=== PATIENT | female | born 1975 | race Caucasian/White ===

== ENCOUNTER → 2020-10-13 16:16 | Outpatient (CLI) | payer OTHER, SELFPAY ==
--- NOTE | ~2020-10-13 | MM_ITS ---
EXAMINATION: MM scrn deidre implant BI w bertha HISTORY: Screening mammogram TECHNIQUE: Craniocaudal and mediolateral oblique 3-D tomosynthesis images with implant displacement a nd synthetic 2-D images were generated. Craniocaudal and mediolateral oblique views of the breasts wi thout implant displacement were obtained using full field digital mammography. CAD analysis was submi tted and interpreted. COMPARISON: Comparison to multiple prior studies sequentially, with oldest reviewed study dated 01/12. BREAST PARENCHYMAL COMPOSITION: There are scattered areas of fibroglandular density. FINDINGS: There are bilateral subpectoral silicone implants. There is no evidence of suspicious mass, calcification, or architectural distortion to suggest malignancy in either breast. There has been no suspicious interval change. IMPRESSION: 1. No mammographic evidence of malignancy. 2. Recommend routine screening mammography in one year. BI-RADS Category 1: Negative Reviewed, dictated and finalized at location A. [employer]
== END ==
PROVIDERS: PCP Family Medicine; Visit Provider Obstetrics & Gynecology Gynecology
DX: Z12.31 Encounter for screening mammogram for malignant neoplasm of breast (principal)
CPT/HCPCS: 77063; 77067

== ENCOUNTER 2021-07-10 07:04 | Emergency (ER) | payer OTHER, SELFPAY ==
[2021-07-10] VITALS (16 sets, daily range): BP systolic 102–168; BP diastolic 54–102; PULSE 65–86; RESP 12–20; TEMP 36.4; O2SAT 95–100
--- NOTE | ~2021-07-10 | CT_ITS ---
EXAMINATION: CT brain wo con DATE: 07/10/2021 08:10 INDICATION: Frontal headache. TECHNIQUE: Computed tomography (CT) of the head was performed without intravenous contrast. The mA wa s adjusted according to patient size. Iterative reconstruction technique was employed. The dose-lengt h product was 605.33 mGy-cm. COMPARISON: Brain MRI 03/14/2019 FINDINGS: There is no intracranial hemorrhage, acute infarction, or abnormal intracranial mass lesion . The ventricles are normal in size. The paranasal sinuses are clear. The mastoid air cells are jessica l. The orbits are normal. IMPRESSION: 1. Normal brain. Reviewed, dictated and finalized at location A. IMPRESSION: 1. Normal brain.
--- NOTE | ~2021-07-10 | XR_ITS ---
EXAMINATION: XR chest 2V DATE: 07/10/2021 07:30 INDICATION: Chest pain radiating to the left shoulder. TECHNIQUE: Frontal and lateral views of the chest were obtained. COMPARISON: None. FINDINGS: The chest demonstrates clear lungs without pneumonia, pleural effusion, or pneumothorax. Th e heart size is normal. Surgical clips in the right upper quadrant are likely from cholecystectomy. B reast implants are noted. IMPRESSION: 1. No acute cardiopulmonary disease. Reviewed, dictated and finalized at location A.
--- NOTE | 2021-07-10 07:05 | ECG_ITS ---
Measurements Intervals Success Rate: 85 P: 56 VT: 142 QRS: 13 QRSD: 88 T: 53 QT: 381 QTc: 454 Interpretive Statements SINUS RHYTHM DELAYED PRECORDIAL R/S TRANSITION BORDERLINE T WAVE ABNORMALITY- INFERIOR LEADS BASELINE ARTIFACT- I, II, III, AVR, AVL, AVF BORDERLINE ECG Electronically Signed On 07-10-2021 7:43:19 CDT by Javier Weber D.O.
[2021-07-10 07:23] LABS: Basophils Percent Auto 0.5 % (0.2-1.2); Eosinophils Absolute Auto 0.1 K/mm3 (0-0.3); Eosinophils Percent Auto 1.3 % (0-4.4); Hemoglobin 15.1 g/dL (12.0-15.0); Immature Granulocyte Absolute 0.01 K/mm3 (0.00-0.031); Immature Granulocyte Percent A 0.2 % (0-0.5); Lymphocytes Absolute Auto 1.89 K/mm3 (0.9-3.2); Lymphocytes Percent Auto 30.2 % (18.3-44.2); Mean Corpuscular HGB Conc 33.6 g/dl (32-36); Mean Corpuscular Hemoglobin 32.3 pg (26-34); Mean Corpuscular Volume 96.4 fl (80-100); Mean Platelet Volume 10.3 fl (7.4-10.4); Monocytes Absolute Auto 0.4 K/mm3 (0.1-0.6); Monocytes Percent Auto 5.6 % (2.6-8.5); Neutrophils Absolute Auto 3.9 K/mm3 (1.3-6.7); Neutrophils Percent Auto 62.2 % (45.5-73.1); Platelet Count Result 301 k/mm3 (150-375); Red Blood Count 4.67 M/mm3 (4.2-5.4); Red Cell Distribution Width 11.9 % (11.5-14.5); White Blood Count 6.3 K/mm3 (4.5-10.0)
[2021-07-10 07:32] LABS: INR 0.9; Prothrombin Time 12.2 Seconds (11.1-14.7)
[2021-07-10 07:33] LABS: Partial Thromboplastin Time 22.2 SECONDS (22.3-36.8)
[2021-07-10 07:35] LABS: Anion Gap 9 mmol/L (8-16); Blood Urea Nitrogen 16 mg/dL (7-17); Calcium 9.7 mg/dL (8.4-10.2); Carbon Dioxide 26 mmol/L (22-30); Chloride 101 mmol/L (98-107); Estimated CRCL calculation 92 ml/min; Estimated Glomerular Filt Rate > 60; Glucose 110 mg/dL (65-110); Potassium 4.3 mmol/L (3.4-5.0); Sodium 136 mmol/L (137-145)
[2021-07-10 07:43] LABS: Alveolar/Arterial O2 Gradient 26.7 mmHg; Base Excess ABG -0.4 mEq/l (+/-2.0); Fractional Inspired Oxygen 21 %; HCO3 ABG 23.1 mEq/l (22.0-26.0); Oxygen Content ABG 18.8 %vol (16.0-22.0); Oxygen Saturation ABG 96.5 % (95.0-100.0); Oxyhemoglobin 95.3 % THb (90.0-100.0); PCO2 ABG 34.5 mmHg (35.0-45.0); PO2 ABG 81.7 mmHg (80.0-100.0); PO2 FiO2 Ratio Arterial Blood 3.89 %; pH ABG 7.443 (7.350-7.450)
[2021-07-10 07:46] LABS: Troponin I < 0.012 ng/mL (0.000-0.034)
--- NOTE | 2021-07-10 07:54 | ED.CHESTPAIN ---
HPI - Chest Pain General Chief Complaint: Chest Pain Stated Complaint: LEFT sided CP into shoulder, H/A Time Seen by Provider: 07/10/21 07:21 Source: patient Mode of arrival: ambulatory Limitations: no limitations History of Present Illness HPI narrative: Patient is 46 years old white female presents with left chest pain radiating to left side of neck and left upper back woke up at 3 AM. Worse with deep breathing and certain movement. Patient denies similar symptoms. History of scleroderma and hypertension. Patient also complaining of frontal headache over the last 3 days, similar to her previous history of migraine, received Excedrin 2 days ago with some improvement. Patient reports a lot of stress lately mainly at work. Related Data Home Medications Medication Instructions Recorded Confirmed ergocalciferol (vitamin D2) 07/10/21 nifedipine PO 07/10/21 Allergies Allergy/AdvReac Type Severity Reaction Status Date / Time levofloxacin Allergy Unknown Unknown Verified 08/18/20 07:57 Penicillins Allergy Unknown Unknown Verified 08/18/20 07:57 Sulfa (Sulfonamide Allergy Unknown Unknown Verified 08/18/20 07:57 Antibiotics) Review of Systems Review of Systems: CONSTITUTIONAL: Denies fever, chills, or sweats. EYES: Denies visual changes, redness, or discharge. ENT: Denies rhinorrhea, congestion, sore throat, or otalgia. CARDIOVASCULAR: Denies chest pain, palpitations, or edema. RESPIRATORY: Denies cough or dyspnea. GASTROINTESTINAL: Denies abdominal pain, nausea, vomiting, or diarrhea. GENITOURINARY: Denies dysuria or hematuria. SKIN: Denies rash or itching. MUSCULOSKELETAL: Denies back pain, joint pain, or myalgia. NEUROLOGIC: Denies headache, numbness, or weakness. PSYCHIATRIC: Denies anxiety or depression. PMFSH Past Medical History Medical History BMI 31.0-31.9,adult Family History Family History Grandparent Family history of malignant neoplasm of breast Other Hypertension Social History Social History Smoking status: Never smoker Alcohol intake: current Exam Narrative: General appearance: Well-developed, well-nourished Skin: Normal color Head: Normocephalic, nontraumatic Eyes: Clear conjunctiva ENT: Oropharynx normal, ears normal, nose normal Neck: Supple, nontender Chest and respiratory: Airway patent, no respiratory distress, no accessory muscle use, diffuse tenderness to left upper chest, left upper back with light palpation, no bruises, no rash, no swelling Heart: Regular rate/rhythm Abdomen: Soft, nontender, no organomegaly, quiet bowel sounds Vascular: Normal peripheral pulses, normal capillary refill. Musculoskeletal: Normal range of motion, nontender back Neurologic: Alert and oriented ?3, [employer] is normal as tested, no gross motor deficit Course Course Emergency Course: Stable, improving Vital Signs Vital signs: Vital Signs Temperature 36.4 C 07/10/21 07:10 Pulse Rate 86 07/10/21 07:10 Respiratory Rate 14 07/10/21 07:10 Blood Pressure 168/90 H 07/10/21 07:10 Pulse Oximetry 98 07/10/21 07:10 Temperature 36.4 C 07/10/21 07:10 Pulse Rate 72 07/10/21 09:02 Respiratory Rate 12 07/10/21 09:02 Blood Pressure 128/57 L 07/10/21 09:01 Pulse Oximetry 98 07/10/21 09:02 MDM - Chest Pain MDM Narrative Medical decision making narrative: Patient presents with what seems like musculoskeletal pain, also headache and stress. Labs, CT head, chest x-ray ordered. Differential Diagnosis Differential diagnosis: Likely atypical angelica
[2021-07-10 08:17] LABS: Alanine Aminotransferase 16 U/L (4-35); Albumin Level 4.3 g/dL (3.5-5.1); Alkaline Phosphatase 40 U/L (38-126); Aspartate Amino Transferase 25 U/L (14-36); Bilirubin,Total 0.6 mg/dL (0.2-1.3)
[2021-07-10] MEDS: KETOROLAC 30 MG/ML VIAL (*BKC) IV PUSH (08:24)
[2021-07-10] MEDS: LORazepam INJ (*CRX) 2 MG/ML VIAL 1 MG IV PUSH (08:24)
[2021-07-10 08:28] LABS: Device ROOM AIR; Modified Allen's Test Pass; Site Drawn LEFT RADIAL
[2021-07-10 09:46] LABS: D Dimer < 0.22 ug/mL (<0.48)
== END 2021-07-10 10:27 | disposition home or self-care (01) ==
PROVIDERS: Emergency Medicine; Emergency Provider Emergency Medicine; PCP Family Medicine
DX: R07.89 Other chest pain (principal); G43.009 Migraine without aura, not intractable, without status migrainosus; F43.22 Adjustment disorder with anxiety; R94.31 Abnormal electrocardiogram [ECG] [EKG]
CPT/HCPCS: 36415; 36600; 70450; 71046; 80048; 80076; 82805; 84484; 85025; 85380; 85610; 85730; 93005; 96374; 96375; 99284; J1885; J2060